=== PATIENT | female | born 1960 | race Caucasian/White ===

== ENCOUNTER 2018-06-07 13:00 | Observation (INO) | payer OTHER ==
[2018-06-07] MEDS ORDERED: Sodium Chloride 0.9% 1,000 ML IV ONE (13:15)
--- NOTE | 2018-06-07 13:19 | EDM.PDOC ---
ED HPI GENERAL MEDICAL PROBLEM - General Chief Complaint: Neurological Problem Stated Complaint: DIZZY AND FELL Time Seen by Provider: 06/07/18 13:00 Source of Information: Reports: Patient, EMS History Limitations: Reports: Intoxication - History of Present Illness INITIAL COMMENTS - FREE TEXT/NARRATIVE: 58 y.o.w.f came to the ED was eating, felt dizzy, passed out for about 4 minutes and had foam in front of her mouth. Her friend prevented the fall. Pt drinks heavily melody a months because of "Marital issues". EMS picked the pat up from the [facility]. On arrival, the patient was lethargic/postictal and not able to to give a HPI. Pt was turned, as a unit, to the right side, no step off was found, pt's neck was tender. Pt felt extremely dizzy, no vertigo, no nystagmus. BP 123/71 RR 10 Pulse ox 94% on RA Temp 36.8 Pulse 60 Onset Date: 06/07/18 Onset Time: 00:05 Duration: Hour(s): Location: Reports: Face Quality: Reports: Ache, Dull, Pressure Severity: Moderate Improves with: Reports: Rest Worsens with: Reports: Movement Context: Reports: Other (was eating, felt dizzy, passed out for about 4 minutes and had foam in front of her mouth. Her friend prevented the fall. ) HEADACHE Pain Score (Numeric/FACES): 6 - Related Data Allergies Allergy/AdvReac Type Severity Reaction Status Date / Time Sulfa (Sulfonamide Allergy Cannot Verified 06/07/18 13:28 Antibiotics) Remember Home Meds: Home Meds Atenolol 25 mg PO BID 06/07/18 [History] Ibuprofen 600 mg PO ASDIRECTED 06/07/18 [History] LORazepam 0.5 mg PO BID 06/07/18 [History] ED ROS GENERAL - Review of Systems Review Of Systems: Unable To Obtain ED EXAM, NEURO - Physical Exam Exam: See Below Exam Limited By: Intoxication General Appearance: Alert, WD/WN, Lethargic, Mild Distress Eye Exam: Bilateral Eye: Normal Inspection Ears: Normal External Exam, Normal Canal Nose: Normal Inspection, Normal Mucosa Throat/Mouth: Normal Inspection, Normal Lips, Normal Voice, Other (poor dentition) Head Exam: Atraumatic, Normocephalic Neck: Tender Lateral, Tender Midline Respiratory/Chest: No Respiratory Distress, Lungs Clear (poor insp effort), Normal Breath Sounds Cardiovascular: Normal Peripheral Pulses, Regular Rate, Rhythm, No Edema, No Gallop GI/Abdominal: Normal Bowel Sounds, Soft, Non-Tender, No Organomegaly, No Distention, No Abnormal Bruit, No Mass, Pelvis Stable (Female) Exam: Deferred Rectal (Female) Exam: Deferred Neurological: Abnormal Gait, Ataxia Back Exam: Normal Inspection, Full Range of Motion Extremities: Normal Inspection, Normal Range of Motion, Non-Tender, No Pedal Edema, Normal Capillary Refill Psychiatric: Normal Affect, Normal Mood Skin Exam: Warm, Dry, Intact, Normal Color Course - Vital Signs Text/Narrative:: 58 y.o.w.f came to the ED was eating, felt dizzy, passed out for about 4 minutes and had foam in front of her mouth. Her friend prevented the fall. Pt drinks heavily melody a months because of "Marital issues". EMS picked the pat up from the [facility]. On arrival, the patient was lethargic/postictal and not able to to give a HPI. Pt was turned, as a unit, to the right side, no step off was found, pt's neck was tender. Pt felt extremely dizzy, no vertigo, no nystagmus. BP 123/71 RR 10 Pulse ox 94% on RA Temp 36.8 Pulse 60 PE: WNWD W F lethargic/postictal with R ant tongue bite and spontaneous urinations Labs: ETOH was 0.03 CMC and BMP were nl except GFR was 57 UDS was pos for Benzos Imaging: CT head: NAD, Neck: Deg changes, Pulm emphysema, Nodule left lower lobe of lung. 1.4 cm mass left parotid gland vs lumph node Impression: ETOH withdrawal Seizure with LOC with tongue bite and spontaneous urinations during the fall. Mass left parotid gland, pulmonary nodule Tx: NS, Thiamin, Folic acid, MVT Reexam: Unsteady gate, unable to ambulate 2.40 pm: Consultation: Dr. Peñaloza, Neurologist, [facility] [place], [place]: Most likely ETOH withdrawal Seizure, pt must not operate any vehicle for the next [address] head strongly recommended, need to have a EEG and a Neuro clinic appointment 4.00 pm Consultation: Dr. Wen, Hospitalist, [place]: Accepted the Pt for admission Plan: Admit to [facility] Last Recorded V/S: Last Vital Signs Temp 36.8 C 06/07/18 16:41 Pulse 67 06/07/18 16:41 Resp 11 L 06/07/18 16:41 BP 109/66 06/07/18 16:41 Pulse Ox 97 06/07/18 16:41 - Orders/Labs/Meds Orders: Active Orders 24 hr Category Date Time Status Assess Neurological Status [RC] ASDIRECTED Care 06/07/18 15:56 Active CIWAA Assessment [RC] Q1H Care 06/07/18 15:56 Active Cardiac Monitoring [RC] 08,16,00 Care 06/07/18 15:59 Active Height and Weight [RC] 06 Care 06/07/18 15:56 Active Intake and Output [RC] 06,14,22 Care 06/07/18 15:59 Active Notify Provider Vital Signs [RC] ASDIRECTED Care 06/07/18 16:00 Active Notify Provider [RC] PRN Care 06/07/18 15:56 Active Oxygen Therapy [RC] PRN Care 06/07/18 15:56 Active Up With Assistance [RC] ASDIRECTED Care 06/07/18 15:56 Active VTE/DVT Education [RC] Per Unit Routine Care 06/07/18 15:56 Active Vital Signs [RC] 04,08,12,16,20,00 Care 06/07/18 15:56 Active Clear Liquid Diet [DIET] Diet 06/07/18 Breakfast Ordered Cervical Spine wo Cont [CT] Stat Exams 06/07/18 13:17 Taken Head wo Cont [CT] Stat Exams 06/07/18 13:17 Taken CBC WITH AUTO DIFF [HEME] AM Lab 06/08/18 05:11 Ordered COMPREHENSIVE METABOLIC PN,CMP [CHEM] AM Lab 06/08/18 05:11 Ordered INR,PT,PROTHROMBIN TIME [COAG] AM Lab 06/08/18 05:11 Ordered MAGNESIUM [CHEM] AM Lab 06/08/18 05:11 Ordered PHOSPHORUS [CHEM] AM Lab 06/08/18 05:11 Ordered PTT,PARTIAL THROMBOPLSTIN TIME [COAG] AM Lab 06/08/18 05:11 Ordered Acetaminophen [Tylenol] Med 06/07/18 15:56 Active 650 mg PO Q4H PRN Folic Acid Med 06/08/18 09:00 Active 1 mg PO DAILY LORazepam [Ativan] Med 06/07/18 16:00 Active See Protocol PO ASDIRECTED Multivitamins [Tab-A-Sudhakar] Med 06/08/18 09:00 Active 1 tab PO DAILY Sodium Chloride 0.9% [Saline Flush] Med 06/07/18 15:56 Active 10 ml FLUSH ASDIRECTED PRN Thiamine [Vitamin B-1] Med 06/08/18 09:00 Active 100 mg PO DAILY Antiembolic Hose [OM.PC] Per Unit Routine Oth 06/07/18 16:00 Ordered Peripheral IV Insertion Adult [OM.PC] Routine Oth 06/07/18 15:56 Ordered Seizure Precautions [OM.PC] Routine Oth 06/07/18 13:18 Ordered Sequential Compression Device [OM.PC] Per Unit Routine Oth 06/07/18 16:00 Ordered Medication Orders Acetaminophen (Tylenol) 650 mg PO Q4H PRN PRN Reason: Pain (Mild 1-3)/fever Last Admin: 06/07/18 17:18 Dose: 650 mg Atenolol (Tenormin) 25 mg PO BID [facility] Folic Acid (Folic Acid) 1 mg PO DAILY [facility] Hydroxyzine HCl (Atarax) 25 mg PO Q4H PRN PRN Reason: Anxiety Lorazepam (Ativan) 0 mg PO ASDIRECTED [facility]; Protocol Multivitamins/Minerals/Vitamin C (Tab-A-Sudhakar) 1 tab PO DAILY [facility] Nicotine Polacrilex (Commit) 2 mg CHEW Q1H PRN PRN Reason: tobacco abuse Sodium Chloride (Saline Flush) 10 ml FLUSH ASDIRECTED PRN PRN Reason: Keep Vein Open Thiamine HCl (Vitamin B-1) 100 mg PO DAILY [facility] Labs: Laboratory Tests 06/07/18 06/07/18 06/07/18 Range/Units 13:30 13:30 13:30 WBC 6.7 (4.5-12.0) X10-3/uL RBC 3.78 (3.23-5.20) x10(6)uL Hgb 12.3 (11.5-15.5) g/dL Hct 35.7 (30.0-51.3) % MCV 94.7 (80-96) fL MCH 32.6 (27.7-33.6) pg MCHC 34.4 (32.2-35.4) g/dL RDW 12.4 (11.5-15.5) % Plt Count 164 (125-369) X10(3)uL MPV 8.2 (7.4-10.4) fL Neut % (Auto) 76.1 (46-82) % Lymph % (Auto) 17.7 (13-37) % [place] % (Auto) 5.1 (4-12) % Eos % (Auto) 1 (1.0-5.0) % Baso % (Auto) 0 (0-2) % Neut # (Auto) 5.1 (1.6-8.3) # Lymph # (Auto) 1.2 (0.6-5.0) # Victoria # (Auto) 0.3 (0.0-1.3) # Eos # (Auto) 0.1 (0.0-0.8) # Baso # (Auto) 0.0 (0.0-0.2) # Sodium 138 (135-145) mmol/L Potassium 3.9 (3.5-5.3) mmol/L Chloride 104 (100-110) mmol/L Carbon Dioxide 22 (21-32) mmol/L BUN 17 (7-18) mg/dL Creatinine 1.0 (0.55-1.02) mg/dL Est Cr Clr Drug Dosing TNP Estimated GFR (MDRD) 57 L (>60) BUN/Creatinine Ratio 17.0 (9-20) Glucose 117 H (80-116) mg/dL Calcium 9.0 (8.6-10.2) mg/dL Urine Color (YELLOW) Urine Appearance (CLEAR) Urine pH (5.0-6.5) Ur Specific [place] (1.010-1.025) Urine Protein (NEGATIVE) mg/dL Urine Glucose (UA) (NEGATIVE) mg/dL Urine Ketones (NEGATIVE) mg/dL Urine Occult Blood (NEGATIVE) Urine Nitrite (NEGATIVE) Urine Bilirubin (NEGATIVE) Urine Urobilinogen (NEGATIVE) mg/dL Ur Leukocyte Esterase (NEGATIVE) Urine RBC (0) Urine WBC (0) Ur Squamous Epith Cells (NS,R,O) Amorphous Sediment Urine Bacteria (NS) Urine Opiates Screen (NEGATIVE) Ur Oxycodone Screen (NEGATIVE) Ur Propoxyphene Screen (NEGATIVE) Ur Barbituates Screen (NEGATIVE) Ur Tricyclics Screen (NEGATIVE) Ur Phencyclidine Scrn (NEGATIVE) Ur Amphetamine Screen (NEGATIVE) Urine MDMA Screen (NEGATIVE) U Benzodiazepines Scrn (NEGATIVE) U Cocaine Metab Screen (NEGATIVE) U Marijuana (THC) Screen (NEGATIVE) Ethyl Alcohol < 0.03 (<0.03) % 06/07/18 06/07/18 Range/Units 14:56 14:56 WBC (4.5-12.0) X10-3/uL RBC (3.23-5.20) x10(6)uL Hgb (11.5-15.5) g/dL Hct (30.0-51.3) % MCV (80-96) fL MCH (27.7-33.6) pg MCHC (32.2-35.4) g/dL RDW (11.5-15.5) % Plt Count (125-369) X10(3)uL MPV (7.4-10.4) fL Neut % (Auto) (46-82) % Lymph % (Auto) (13-37) % [place] % (Auto) (4-12) % Eos % (Auto) (1.0-5.0) % Baso % (Auto) (0-2) % Neut # (Auto) (1.6-8.3) # Lymph # (Auto) (0.6-5.0) # Victoria # (Auto) (0.0-1.3) # Eos # (Auto) (0.0-0.8) # Baso # (Auto) (0.0-0.2) # Sodium (135-145) mmol/L Potassium (3.5-5.3) mmol/L Chloride (100-110) mmol/L Carbon Dioxide (21-32) mmol/L BUN (7-18) mg/dL Creatinine (0.55-1.02) mg/dL Est Cr Clr Drug Dosing Estimated GFR (MDRD) (>60) BUN/Creatinine Ratio (9-20) Glucose (80-116) mg/dL Calcium (8.6-10.2) mg/dL Urine Color Yellow (YELLOW) Urine Appearance Slightly cloudy (CLEAR) Urine pH 6.0 (5.0-6.5) Ur Specific [place] 1.020 (1.010-1.025) Urine Protein Trace (NEGATIVE) mg/dL Urine Glucose (UA) Normal (NEGATIVE) mg/dL Urine Ketones Negative (NEGATIVE) mg/dL Urine Occult Blood Negative (NEGATIVE) Urine Nitrite Negative (NEGATIVE) Urine Bilirubin Small H (NEGATIVE) Urine Urobilinogen 1 H (NEGATIVE) mg/dL Ur Leukocyte Esterase Negative (NEGATIVE) Urine RBC 0-5 (0) Urine WBC 0-5 (0) Ur Squamous Epith Cells Moderate H (NS,R,O) Amorphous Sediment Few Urine Bacteria Few H (NS) Urine Opiates Screen Negative (NEGATIVE) Ur Oxycodone Screen Negative (NEGATIVE) Ur Propoxyphene Screen Negative (NEGATIVE) Ur Barbituates Screen Negative (NEGATIVE) Ur Tricyclics Screen Negative (NEGATIVE) Ur Phencyclidine Scrn Negative (NEGATIVE) Ur Amphetamine Screen Negative (NEGATIVE) Urine MDMA Screen Negative (NEGATIVE) U Benzodiazepines Scrn Positive H (NEGATIVE) U Cocaine Metab Screen Negative (NEGATIVE) U Marijuana (THC) Screen Negative (NEGATIVE) Ethyl Alcohol (<0.03) % Meds: Medications Generic Name Dose Route Start Last Admin Trade Name Freq PRN Reason Stop Dose Admin Acetaminophen 650 mg 06/07/18 15:56 06/07/18 17:18 Tylenol PO 650 mg Q4H PRN Administration Pain (Mild 1-3)/fever Atenolol 25 mg 06/07/18 21:00 Tenormin PO BID [facility] Folic Acid 1 mg 06/08/18 09:00 Folic Acid PO DAILY [facility] Hydroxyzine HCl 25 mg 06/07/18 16:50 Atarax PO Q4H PRN Anxiety Lorazepam 0 mg 06/07/18 16:00 Ativan PO ASDIRECTED [facility] Protocol Multivitamins/Minerals/Vitamin C 1 tab 06/08/18 09:00 Tab-A-Sudhakar PO DAILY [facility] Nicotine Polacrilex 2 mg 06/07/18 16:47 Commit CHEW Q1H PRN tobacco abuse Sodium Chloride 10 ml 06/07/18 15:56 Saline Flush FLUSH ASDIRECTED PRN Keep Vein Open Thiamine HCl 100 mg 06/08/18 09:00 Vitamin B-1 PO DAILY [facility] Discontinued Medications Generic Name Dose Route Start Last Admin Trade Name Freq PRN Reason Stop Dose Admin Folic Acid 1 mg 06/07/18 15:02 06/07/18 15:14 Folic Acid PO 06/07/18 15:03 1 mg ONETIME ONE Administration Sodium Chloride 1,000 mls @ 999 mls/hr 06/07/18 13:15 06/07/18 13:40 Normal Saline IV 06/07/18 14:15 999 mls/hr .BOLUS ONE Administration Multivitamins/Minerals/Vitamin C 1 tab 06/07/18 15:02 06/07/18 15:14 Tab-A-Sudhakar PO 06/07/18 15:03 1 tab ONETIME STA Administration Thiamine HCl 100 mg 06/07/18 15:02 06/07/18 15:14 Vitamin B-1 PO 06/07/18 15:03 100 mg ONETIME ONE Administration Departure - Departure Time of Disposition: 16:47 Disposition: Admitted As Inpatient 64 Clinical Impression: Seizure, H/O ETOH abuse - Discharge Information - My Orders Last 24 Hours: My Active Orders 06/07/18 13:17 Cervical Spine wo Cont [CT] Stat Head wo Cont [CT] Stat 06/07/18 13:18 Seizure Precautions [OM.PC] Routine - Assessment/Plan Last 24 Hours: My Active Orders 06/07/18 13:17 Cervical Spine wo Cont [CT] Stat Head wo Cont [CT] Stat 06/07/18 13:18 Seizure Precautions [OM.PC] Routine
[2018-06-07] MEDS ORDERED: Thiamine 100 MG Tab PO ONE (15:02)
[2018-06-07] MEDS ORDERED: Multivitamin Tab PO STA (15:02)
[2018-06-07] MEDS ORDERED: Folic Acid 1 MG Tab PO ONE (15:02)
[2018-06-07] MEDS ORDERED: Sodium Chloride 0.9% 10 ML Syringe FLUSH PRN (15:56)
[2018-06-07] MEDS ORDERED: LORazepam 1 MG Tab PO SCH (16:00)
--- NOTE | 2018-06-07 16:40 | PCM.HP ---
H&P History of Present Illness - General Date of Service: 06/07/18 Admit Problem/Dx: Admission Diagnosis/Problem Admission Diagnosis/Problem Alcohol withdrawal seizure Source of Information: Patient, Family, Provider History Limitations: Reports: Other (unable to recall) - History of Present Illness Initial Comments - Free Text/Narative: Patient is a 58-year-old female who binge drinks 3-4 times per month 6-12 beers at a time who was out drinking at the casino in [place] last night and had her last drink about 12:30 AM. She was there with a friend and they got up to go have breakfast this morning around 11. At around 11:30 AM she was feeling very dizzy as she was sitting in the [place] at the restaurant there. She felt like her vision was somewhat blurred and couldn't really see straight. The next thing she knew she woke up on the floor. Her friend reported that she had become very pale, her eyes rolled back in her head, and she started to foam at the mouth. The friend screamed for help and a catering staff member helped her lower the patient to the floor. The friend thinks it was about 4 minutes before she became responsive. No mention of stiffness or rhythmic movements but the patient was incontinent of urine. When she woke she was very confused and disoriented. EMS brought her to the emergency department where she was evaluated. Head CT was negative, vital signs were stable, patient had a tongue laceration, and the ER physician consult with neurology from [place]. He recommended no driving for the next 3 months, EEG and follow-up with neurology on discharge. They did not recommend any medication as it was likely induced by the heavy drinking. The initial plan had been to discharge the patient home from the ER once her post ictal lethargy had resolved but she continued to be quite off balance and weak and so I was asked to admit the patient for observation. The patient at this time has no pain. She is alert and oriented 3. She feels weak and dizzy when she sits up. No chest pain, no shortness of breath, no nausea, no vomiting. She bit the side of her tongue on the right. She normally takes lorazepam 0.5 mg twice a day for anxiety, has never been on anything else for anxiety. She skipped her dose last night and hasn't had any yet today. Past medical history: No prior history of seizures or alcohol treatment. Patient only drinks about once a week and has never had tremors or shakes with her alcohol use. Hypertension Sjogren's disease Anxiety which began when her son committed suicide. She currently takes lorazepam 0.5 mg twice a day and has since his . Social history: The patient has 4 children, one of which is apparent of fraternal twins. Her one son committed suicide. She drinks about once a week but when she drinks she drinks very heavily between 6-12 beers at a sitting. She smokes a half pack of cigarettes per day. She is and she and her live in [facility]. 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 - Related Data Allergies/Adverse Reactions: Allergies Allergy/AdvReac Type Severity Reaction Status Date / Time Sulfa (Sulfonamide Allergy Cannot Verified 06/07/18 13:28 Antibiotics) Remember Home Medications: Home Meds Atenolol 25 mg PO BID 06/07/18 [History] Ibuprofen 600 mg PO ASDIRECTED 06/07/18 [History] LORazepam 0.5 mg PO BID 06/07/18 [History] Past Medical History Cardiovascular History: Reports: Hypertension Psychiatric History: Reports: Anxiety Social & Family History - Tobacco Use Smoking Status *Q: Current Every Day Smoker Years of Tobacco use: 35 Packs/Tins Daily: 1 - Caffeine Use Caffeine Use: Reports: None - Recreational Drug Use Recreational Drug Use: No H&P Review of Systems - Review of Systems: Review Of Systems: ROS reveals no pertinent complaints other than HPI. Exam - Exam Exam: See Below - Vital Signs Vital Signs: Last Vital Signs Temp 36.6 C 06/07/18 16:00 Pulse 64 06/07/18 14:15 Resp 12 06/07/18 16:00 BP 115/55 L 06/07/18 16:00 Pulse Ox 100 06/07/18 16:00 Weight: 63.503 kg - Exam General: Alert, Oriented, Cooperative HEENT: PERRLA, Conjunctiva Clear, EACs Clear, EOMI, Mucosa Moist & Reservoir, Posterior Pharynx Clear, Other (Abrasion to the right side of the tongue.) Neck: Supple (No tenderness) Lungs: Clear to Auscultation, Normal Respiratory Effort Cardiovascular: Regular Rate, Regular Rhythm, Normal S1, Normal S2 GI/Abdominal Exam: Normal Bowel Sounds, Soft, Non-Tender, No Distention Extremities: Normal Inspection, Normal Range of Motion, No Pedal Edema Neurological: Strength Equal Bilateral (on lower extremity exam in bed as patient became dizzy with sitting up.), Babinski Absent Neuro Extensive - Mental Status: Alert, Oriented x3, Memory Intact Psychiatric: Alert, Normal Affect, Normal Mood - Patient Data Lab Results Last 24 hrs: Laboratory Results - last 24 hr 06/07/18 06/07/18 06/07/18 Range/Units 13:30 13:30 13:30 WBC 6.7 (4.5-12.0) X10-3/uL RBC 3.78 (3.23-5.20) x10(6)uL Hgb 12.3 (11.5-15.5) g/dL Hct 35.7 (30.0-51.3) % MCV 94.7 (80-96) fL MCH 32.6 (27.7-33.6) pg MCHC 34.4 (32.2-35.4) g/dL RDW 12.4 (11.5-15.5) % Plt Count 164 (125-369) X10(3)uL MPV 8.2 (7.4-10.4) fL Neut % (Auto) 76.1 (46-82) % Lymph % (Auto) 17.7 (13-37) % Victoria % (Auto) 5.1 (4-12) % Eos % (Auto) 1 (1.0-5.0) % Baso % (Auto) 0 (0-2) % Neut # (Auto) 5.1 (1.6-8.3) # Lymph # (Auto) 1.2 (0.6-5.0) # Victoria # (Auto) 0.3 (0.0-1.3) # Eos # (Auto) 0.1 (0.0-0.8) # Baso # (Auto) 0.0 (0.0-0.2) # Sodium 138 (135-145) mmol/L Potassium 3.9 (3.5-5.3) mmol/L Chloride 104 (100-110) mmol/L Carbon Dioxide 22 (21-32) mmol/L BUN 17 (7-18) mg/dL Creatinine 1.0 (0.55-1.02) mg/dL Est Cr Clr Drug Dosing TNP Estimated GFR (MDRD) 57 L (>60) BUN/Creatinine Ratio 17.0 (9-20) Glucose 117 H (80-116) mg/dL Calcium 9.0 (8.6-10.2) mg/dL Urine Color (YELLOW) Urine Appearance (CLEAR) Urine pH (5.0-6.5) Ur Specific [place] (1.010-1.025) Urine Protein (NEGATIVE) mg/dL Urine Glucose (UA) (NEGATIVE) mg/dL Urine Ketones (NEGATIVE) mg/dL Urine Occult Blood (NEGATIVE) Urine Nitrite (NEGATIVE) Urine Bilirubin (NEGATIVE) Urine Urobilinogen (NEGATIVE) mg/dL Ur Leukocyte Esterase (NEGATIVE) Urine RBC (0) Urine WBC (0) Ur Squamous Epith Cells (NS,R,O) Amorphous Sediment Urine Bacteria (NS) Urine Opiates Screen (NEGATIVE) Ur Oxycodone Screen (NEGATIVE) Ur Propoxyphene Screen (NEGATIVE) Ur Barbituates Screen (NEGATIVE) Ur Tricyclics Screen (NEGATIVE) Ur Phencyclidine Scrn (NEGATIVE) Ur Amphetamine Screen (NEGATIVE) Urine MDMA Screen (NEGATIVE) U Benzodiazepines Scrn (NEGATIVE) U Cocaine Metab Screen (NEGATIVE) U Marijuana (THC) Screen (NEGATIVE) Ethyl Alcohol < 0.03 (<0.03) % 06/07/18 06/07/18 Range/Units 14:56 14:56 WBC (4.5-12.0) X10-3/uL RBC (3.23-5.20) x10(6)uL Hgb (11.5-15.5) g/dL Hct (30.0-51.3) % MCV (80-96) fL MCH (27.7-33.6) pg MCHC (32.2-35.4) g/dL RDW (11.5-15.5) % Plt Count (125-369) X10(3)uL MPV (7.4-10.4) fL Neut % (Auto) (46-82) % Lymph % (Auto) (13-37) % [place] % (Auto) (4-12) % Eos % (Auto) (1.0-5.0) % Baso % (Auto) (0-2) % Neut # (Auto) (1.6-8.3) # Lymph # (Auto) (0.6-5.0) # Victoria # (Auto) (0.0-1.3) # Eos # (Auto) (0.0-0.8) # Baso # (Auto) (0.0-0.2) # Sodium (135-145) mmol/L Potassium (3.5-5.3) mmol/L Chloride (100-110) mmol/L Carbon Dioxide (21-32) mmol/L BUN (7-18) mg/dL Creatinine (0.55-1.02) mg/dL Est Cr Clr Drug Dosing Estimated GFR (MDRD) (>60) BUN/Creatinine Ratio (9-20) Glucose (80-116) mg/dL Calcium (8.6-10.2) mg/dL Urine Color Yellow (YELLOW) Urine Appearance Slightly cloudy (CLEAR) Urine pH 6.0 (5.0-6.5) Ur Specific [place] 1.020 (1.010-1.025) Urine Protein Trace (NEGATIVE) mg/dL Urine Glucose (UA) Normal (NEGATIVE) mg/dL Urine Ketones Negative (NEGATIVE) mg/dL Urine Occult Blood Negative (NEGATIVE) Urine Nitrite Negative (NEGATIVE) Urine Bilirubin Small H (NEGATIVE) Urine Urobilinogen 1 H (NEGATIVE) mg/dL Ur Leukocyte Esterase Negative (NEGATIVE) Urine RBC 0-5 (0) Urine WBC 0-5 (0) Ur Squamous Epith Cells Moderate H (NS,R,O) Amorphous Sediment Few Urine Bacteria Few H (NS) Urine Opiates Screen Negative (NEGATIVE) Ur Oxycodone Screen Negative (NEGATIVE) Ur Propoxyphene Screen Negative (NEGATIVE) Ur Barbituates Screen Negative (NEGATIVE) Ur Tricyclics Screen Negative (NEGATIVE) Ur Phencyclidine Scrn Negative (NEGATIVE) Ur Amphetamine Screen Negative (NEGATIVE) Urine MDMA Screen Negative (NEGATIVE) U Benzodiazepines Scrn Positive H (NEGATIVE) U Cocaine Metab Screen Negative (NEGATIVE) U Marijuana (THC) Screen Negative (NEGATIVE) Ethyl Alcohol (<0.03) % Result Diagrams: 06/07/18 13:30 06/07/18 13:30 Imaging Impressions Last 24 hrs: head CT reportedly negative. - Problem List (1) Seizure concurrent with and due to anxiolytic withdrawal SNOMED Code(s): 411672131 ICD Code: F13.239 - SEDATV/HYP/ANXIOLYTC DEPENDENCE W WITHDRAWAL, UNSP; F13.288 - SEDATIVE, HYPNOTIC OR ANXIOLYTIC DEPENDENCE W OTH DISORDER; R56.9 - UNSPECIFIED CONVULSIONS Status: Acute Current Visit: Yes Problem Details: I suspect the combination of heavy alcohol use combined with the withdrawal from the lorazepam precipitated the seizure. We'll monitor the patient overnight. An MRI will be scheduled for Saturday at 8:30 AM to rule out other intracranial abnormalities. Recheck electrolytes, labs in a.m. Seizure precautions. Cardiac monitoring. (2) HTN (hypertension) SNOMED Code(s): 26141106 ICD Code: I10 - ESSENTIAL (PRIMARY) HYPERTENSION Status: Acute Current Visit: Yes Problem Details: Monitor. Continue atenolol. (3) Tobacco abuse SNOMED Code(s): 058268437 ICD Code: Z72.0 - TOBACCO USE Status: Acute Current Visit: Yes Problem Details: Nicotine replacement. (4) DVT prophylaxis SNOMED Code(s): 460448958, 112098873 ICD Code: [id number] - Status: Acute Current Visit: Yes Problem Details: SCDs, support hose, early ambulation. Problem List Initiated/Reviewed/Updated: Yes Orders Last 24hrs: Active Orders 24 hr Category Date Time Status Admission Status [Patient Status] [ADT] Routine ADT 06/07/18 16:03 Active Assess Neurological Status [RC] ASDIRECTED Care 06/07/18 15:56 Active CIWAA Assessment [RC] Q1H Care 06/07/18 15:56 Active Cardiac Monitoring [RC] CONTINUOUS Care 06/07/18 15:59 Active Height and Weight [RC] DAILY Care 06/07/18 15:56 Active Intake and Output [RC] QSHIFT Care 06/07/18 15:59 Active Notify Provider Vital Signs [RC] ASDIRECTED Care 06/07/18 16:00 Active Notify Provider [RC] PRN Care 06/07/18 15:56 Active Oxygen Therapy [RC] PRN Care 06/07/18 15:56 Active Up With Assistance [RC] ASDIRECTED Care 06/07/18 15:56 Active VTE/DVT Education [RC] Per Unit Routine Care 06/07/18 15:56 Active Vital Signs [RC] Q4H Care 06/07/18 15:56 Active Clear Liquid Diet [DIET] Diet 06/07/18 Breakfast Ordered Cervical Spine wo Cont [CT] Stat Exams 06/07/18 13:17 Taken Head wo Cont [CT] Stat Exams 06/07/18 13:17 Taken CBC WITH AUTO DIFF [HEME] AM Lab 06/08/18 05:11 Ordered COMPREHENSIVE METABOLIC PN,CMP [CHEM] AM Lab 06/08/18 05:11 Ordered INR,PT,PROTHROMBIN TIME [COAG] AM Lab 06/08/18 05:11 Ordered MAGNESIUM [CHEM] AM Lab 06/08/18 05:11 Ordered PHOSPHORUS [CHEM] AM Lab 06/08/18 05:11 Ordered PTT,PARTIAL THROMBOPLSTIN TIME [COAG] AM Lab 06/08/18 05:11 Ordered Acetaminophen [Tylenol] Med 06/07/18 15:56 Active 650 mg PO Q4H PRN Folic Acid Med 06/08/18 09:00 Active 1 mg PO DAILY LORazepam [Ativan] Med 06/07/18 16:00 Active See Protocol PO ASDIRECTED Multivitamins [Tab-A-Sudhakar] Med 06/08/18 09:00 Active 1 tab PO DAILY Sodium Chloride 0.9% [Saline Flush] Med 06/07/18 15:56 Active 10 ml FLUSH ASDIRECTED PRN Thiamine [Vitamin B-1] Med 06/08/18 09:00 Active 100 mg PO DAILY Antiembolic Hose [OM.PC] Per Unit Routine Oth 06/07/18 16:00 Ordered Peripheral IV Insertion Adult [OM.PC] Routine Oth 06/07/18 15:56 Ordered Seizure Precautions [OM.PC] Routine Oth 06/07/18 13:18 Ordered Sequential Compression Device [OM.PC] Per Unit Routine Oth 06/07/18 16:00 Ordered Medication Orders Acetaminophen (Tylenol) 650 mg PO Q4H PRN PRN Reason: Pain (Mild 1-3)/fever Folic Acid (Folic Acid) 1 mg PO DAILY LEONOR Lorazepam (Ativan) 0 mg PO ASDIRECTED LEONOR; Protocol Multivitamins/Minerals/Vitamin C (Tab-A-Sudhakar) 1 tab PO DAILY LEONOR Sodium Chloride (Saline Flush) 10 ml FLUSH ASDIRECTED PRN PRN Reason: Keep Vein Open Thiamine HCl (Vitamin B-1) 100 mg PO DAILY LEONOR Assessment/Plan Comment:: CODE STATUS reviewed with the patient and her on admission and the patient is a full code. She would want everything done to try to resuscitate her if she were to stop breathing or her heart were to stop beating. However she would not want long-term intubation or feeding tubes and recommended advanced healthcare directive planning to address these issues.
[2018-06-07] MEDS ORDERED: Nicotine Polacrilex 2 MG Loz Box CHEW PRN (16:47)
[2018-06-07] MEDS: Acetaminophen 325 MG Tab PO PRN (17:18)
[2018-06-07] MEDS ORDERED: Ibuprofen 400 MG Tab PO PRN (17:46)
[2018-06-07] MEDS ORDERED: Atenolol 25 MG Tab PO SCH (21:00)
[2018-06-07] MEDS: hydrOXYzine HCl 25 MG Tab PO PRN (21:09)
[2018-06-08] MEDS: Acetaminophen 325 MG Tab PO PRN (06:03)
[2018-06-08] MEDS ORDERED: Multivitamin Tab PO SCH (09:00)
[2018-06-08] MEDS ORDERED: Thiamine 100 MG Tab PO SCH (09:00)
[2018-06-08] MEDS ORDERED: Folic Acid 1 MG Tab PO SCH (09:00)
[2018-06-08] MEDS: hydrOXYzine HCl 25 MG Tab PO PRN (09:39)
--- NOTE | 2018-06-08 11:33 | PCM.DCSUM1 ---
Discharge Summary - Hospital Course Free Text/Narrative:: Date of admission: 06/07/18 Date of discharge: 06/08/18 Admission diagnosis: Possible seizure related to excessive alcohol consumption Discharge diagnosis: Same Consults: Neurology by phone from the emergency department. They recommended not starting an antiseizure medication at this time. Patient will have an MRI done the day after discharge and neurology appointment and EEG need to be set up from the patient's primary care provider's office. The patient should not drive until she's been cleared by neurology. Procedures: Head CT was negative. CT of the cervical spine was negative, but incidentally was found mild pulmonary emphysema with a 4-5 mm left upper lobe pulmonary nodule, and a 1.4 cm small mass involving the left parotid gland versus intraparotid lymph node. The patient and her were given copies of these imaging studies with the pertinent findings highlighted and I recommended following up tomorrow in our urgent care to get further testing set up as the patient does not currently have insurance and does not want to go back to her primary care provider for this. They can also help her arrange EEG and neurology follow-up. History of present illness: Patient is a 58-year-old female who binge drinks 3-4 times per month 6-12 beers at a time who was out drinking at the casino in [place] the night prior to admission and had her last drink about 12:30 AM. She was there with a friend and they got up to go have breakfast on the AM of admission around 11. At around 11:30 AM she was feeling very dizzy as she was sitting in the [place] at the restaurant there. She felt like her vision was somewhat blurred and couldn' t really see straight. The next thing she knew she woke up on the floor. Her friend reported that she had become very pale, her eyes rolled back in her head , and she started to foam at the mouth. The friend screamed for help and a waitstaff captain helped her lower the patient to the floor. The friend thinks it was about 4 minutes before she became responsive. No mention of stiffness or rhythmic movements but the patient was incontinent of urine. When she woke she was very confused and disoriented. EMS brought her to the emergency department where she was evaluated. Head CT was negative, vital signs were stable, patient had a tongue laceration, and the ER physician consulted by phone with neurology from [facility]. He recommended no driving for the next 3 months, EEG and follow-up with neurology on discharge. They did not recommend any medication as it was likely induced by the heavy drinking. The initial plan had been to discharge the patient home from the ER once her post ictal lethargy had resolved but she continued to be quite off balance and weak and so I was asked to admit the patient for observation. Hospital Course: Patient did well throughout hospitalization. She was found to be bradycardic and hypotensive and her atenolol was stopped. For anxiety, hydroxyzine was tried and worked well. 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 On the day of discharge, the patient was able to ambulate in the [place] without difficulty. Initially she still felt very achy and anxious about all the cost associated with this visit as she doesn't have insurance. No chest pain, no shortness of breath, no nausea or vomiting, still feels a little shaky. 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 Patient had no further symptoms overnight. An MRI will be scheduled for Saturday at 8:30 AM to rule out other intracranial abnormalities. Follow up with PCP later this week and plan to schedule neurology outpatient visit with EEG. (2) HTN (hypertension) SNOMED Code(s): 36129798 ICD Code: I10 - ESSENTIAL (PRIMARY) HYPERTENSION Status: Acute Current Visit: Yes Problem Details: Has been hypotensive and bradycardic here, as low as 40s overnight. Recommend holding this until follow up and consider alternative blood pressure medication. (3) Tobacco abuse SNOMED Code(s): 830971117 ICD Code: Z72.0 - TOBACCO USE Status: Acute Current Visit: Yes Problem Details: Nicotine replacement. (4) Anxiety SNOMED Code(s): 73440312 ICD Code: F41.9 - ANXIETY DISORDER, UNSPECIFIED Status: Acute Current Visit: Yes Problem Details: Patient did well with PO hydralazine. Recommended seeing PCP to do long-acting anti anxiety med, no more lorazepam or alcohol, and consider counseling. (5) DVT prophylaxis SNOMED Code(s): 107529284, 968648699 ICD Code: [id number] - Status: Acute Current Visit: Yes Problem Details: SCDs, support hose, early ambulation. - Patient Instructions Diet: Heart Healthy Diet Activity: As Tolerated Driving: Do Not Drive (No driving until cleared by neurology) Other/Special Instructions: You were admitted to the hospital for an episode of loss of consciousness. We think you may have had a seizure, which could have been triggered by alcohol and your lorazepam, missing a dose. You had no symptoms of withdrawal in the hospital, and no further seizures. DO NOT drink alcoholic beverages or take lorazepam again. You may use hydroxyzine instead for anxiety, and I would suggest a longer-acting medication like prozac or zoloft for anxiety as well. Please see your regular doctor this week to discuss , and to set up an appointment with neurology. You will need to have an EEG done as an outpatient to look for abnormal brain activity that might trigger another seizure. You cannot drive until cleared by neurology. You have an MRI scheduled for 8:30 am on Saturday06/09/18 here at [facility]. Your heart rate and blood pressure were quite low in the hospital, and you should stop your atenolol and follow up next week with your regular doctor. - Discharge Plan Prescriptions/Med Rec: hydrOXYzine HCl [hydrOXYzine] 25 mg PO Q4H PRN #30 tablet PRN Reason: Anxiety Nicotine Polacrilex [Commit] 2 mg CHEW Q1H PRN #20 adina PRN Reason: tobacco abuse Home Medications: Home Meds Nicotine Polacrilex [Commit] 2 mg CHEW Q1H PRN #20 adina 06/08/18 [Rx] hydrOXYzine HCl [hydrOXYzine] 25 mg PO Q4H PRN #30 tablet 06/08/18 [Rx] Patient Handouts: Seizure, Adult, Venous Thromboembolism Prevention Forms: ED Department Discharge Referrals: PCP,None [Ordering Only Provider] - - Discharge Summary/Plan Comment DC Time >30 min.: Yes - Patient Data Vitals - Most Recent: Last Vital Signs Temp 36.7 C 06/08/18 07:16 Pulse 57 L 06/08/18 07:16 Resp 15 06/08/18 07:16 BP 91/57 L 06/08/18 07:16 Pulse Ox 99 06/08/18 07:16 Orthostatic Blood Pressure [ 119/80 Sitting] Weight - Most Recent: 62.278 kg I&O - Last 24 hours: Intake & Output 06/07/18 06/08/18 06/08/18 22:59 06:59 14:59 Intake Total 425 100 300 Output Total 650 450 600 Balance -225 -350 -300 Lab Results - Last 24 hrs: Laboratory Results - last 24 hr 06/07/18 06/07/18 06/07/18 Range/Units 13:30 13:30 13:30 WBC 6.7 (4.5-12.0) X10-3/uL RBC 3.78 (3.23-5.20) x10(6)uL Hgb 12.3 (11.5-15.5) g/dL Hct 35.7 (30.0-51.3) % MCV 94.7 (80-96) fL MCH 32.6 (27.7-33.6) pg MCHC 34.4 (32.2-35.4) g/dL RDW 12.4 (11.5-15.5) % Plt Count 164 (125-369) X10(3)uL MPV 8.2 (7.4-10.4) fL Neut % (Auto) 76.1 (46-82) % Lymph % (Auto) 17.7 (13-37) % [place] % (Auto) 5.1 (4-12) % Eos % (Auto) 1 (1.0-5.0) % Baso % (Auto) 0 (0-2) % Neut # (Auto) 5.1 (1.6-8.3) # Lymph # (Auto) 1.2 (0.6-5.0) # [place] # (Auto) 0.3 (0.0-1.3) # Eos # (Auto) 0.1 (0.0-0.8) # Baso # (Auto) 0.0 (0.0-0.2) # PT (8.7-11.1) INR (0.89-1.13) APTT (24.4-33.2) SECONDS Sodium 138 (135-145) mmol/L Potassium 3.9 (3.5-5.3) mmol/L Chloride 104 (100-110) mmol/L Carbon Dioxide 22 (21-32) mmol/L BUN 17 (7-18) mg/dL Creatinine 1.0 (0.55-1.02) mg/dL Est Cr Clr Drug Dosing TNP Estimated GFR (MDRD) 57 L (>60) BUN/Creatinine Ratio 17.0 (9-20) Glucose 117 H (80-116) mg/dL Calcium 9.0 (8.6-10.2) mg/dL Phosphorus (2.6-4.6) mg/dL Magnesium (1.8-2.5) mg/dL Total Bilirubin (0.1-1.3) mg/dL AST (5-25) IU/L ALT (12-36) U/L Alkaline Phosphatase (56-112) IU/L Total Protein (6.0-8.0) g/dL Albumin (3.2-4.6) g/dL Globulin g/dL Albumin/Globulin Ratio Urine Color (YELLOW) Urine Appearance (CLEAR) Urine pH (5.0-6.5) Ur Specific [place] (1.010-1.025) Urine Protein (NEGATIVE) mg/dL Urine Glucose (UA) (NEGATIVE) mg/dL Urine Ketones (NEGATIVE) mg/dL Urine Occult Blood (NEGATIVE) Urine Nitrite (NEGATIVE) Urine Bilirubin (NEGATIVE) Urine Urobilinogen (NEGATIVE) mg/dL Ur Leukocyte Esterase (NEGATIVE) Urine RBC (0) Urine WBC (0) Ur Squamous Epith Cells (NS,R,O) Amorphous Sediment Urine Bacteria (NS) Urine Opiates Screen (NEGATIVE) Ur Oxycodone Screen (NEGATIVE) Ur Propoxyphene Screen (NEGATIVE) Ur Barbituates Screen (NEGATIVE) Ur Tricyclics Screen (NEGATIVE) Ur Phencyclidine Scrn (NEGATIVE) Ur Amphetamine Screen (NEGATIVE) Urine MDMA Screen (NEGATIVE) U Benzodiazepines Scrn (NEGATIVE) U Cocaine Metab Screen (NEGATIVE) U Marijuana (THC) Screen (NEGATIVE) Ethyl Alcohol < 0.03 (<0.03) % 06/07/18 06/07/18 06/08/18 Range/Units 14:56 14:56 06:12 WBC 4.8 (4.5-12.0) X10-3/uL RBC 3.40 (3.23-5.20) x10(6)uL Hgb 11.2 L (11.5-15.5) g/dL Hct 32.3 (30.0-51.3) % MCV 95.0 (80-96) fL MCH 32.8 (27.7-33.6) pg MCHC 34.5 (32.2-35.4) g/dL RDW 12.7 (11.5-15.5) % Plt Count 148 (125-369) X10(3)uL MPV 8.4 (7.4-10.4) fL Neut % (Auto) 52.5 (46-82) % Lymph % (Auto) 36.2 (13-37) % [place] % (Auto) 9.3 (4-12) % Eos % (Auto) 2 (1.0-5.0) % Baso % (Auto) 0 (0-2) % Neut # (Auto) 2.6 (1.6-8.3) # Lymph # (Auto) 1.7 (0.6-5.0) # [place] # (Auto) 0.4 (0.0-1.3) # Eos # (Auto) 0.1 (0.0-0.8) # Baso # (Auto) 0.0 (0.0-0.2) # PT (8.7-11.1) INR (0.89-1.13) APTT (24.4-33.2) SECONDS Sodium (135-145) mmol/L Potassium (3.5-5.3) mmol/L Chloride (100-110) mmol/L Carbon Dioxide (21-32) mmol/L BUN (7-18) mg/dL Creatinine (0.55-1.02) mg/dL Est Cr Clr Drug Dosing Estimated GFR (MDRD) (>60) BUN/Creatinine Ratio (9-20) Glucose (80-116) mg/dL Calcium (8.6-10.2) mg/dL Phosphorus (2.6-4.6) mg/dL Magnesium (1.8-2.5) mg/dL Total Bilirubin (0.1-1.3) mg/dL AST (5-25) IU/L ALT (12-36) U/L Alkaline Phosphatase (56-112) IU/L Total Protein (6.0-8.0) g/dL Albumin (3.2-4.6) g/dL Globulin g/dL Albumin/Globulin Ratio Urine Color Yellow (YELLOW) Urine Appearance Slightly cloudy (CLEAR) Urine pH 6.0 (5.0-6.5) Ur Specific [place] 1.020 (1.010-1.025) Urine Protein Trace (NEGATIVE) mg/dL Urine Glucose (UA) Normal (NEGATIVE) mg/dL Urine Ketones Negative (NEGATIVE) mg/dL Urine Occult Blood Negative (NEGATIVE) Urine Nitrite Negative (NEGATIVE) Urine Bilirubin Small H (NEGATIVE) Urine Urobilinogen 1 H (NEGATIVE) mg/dL Ur Leukocyte Esterase Negative (NEGATIVE) Urine RBC 0-5 (0) Urine WBC 0-5 (0) Ur Squamous Epith Cells Moderate H (NS,R,O) Amorphous Sediment Few Urine Bacteria Few H (NS) Urine Opiates Screen Negative (NEGATIVE) Ur Oxycodone Screen Negative (NEGATIVE) Ur Propoxyphene Screen Negative (NEGATIVE) Ur Barbituates Screen Negative (NEGATIVE) Ur Tricyclics Screen Negative (NEGATIVE) Ur Phencyclidine Scrn Negative (NEGATIVE) Ur Amphetamine Screen Negative (NEGATIVE) Urine MDMA Screen Negative (NEGATIVE) U Benzodiazepines Scrn Positive H (NEGATIVE) U Cocaine Metab Screen Negative (NEGATIVE) U Marijuana (THC) Screen Negative (NEGATIVE) Ethyl Alcohol (<0.03) % 06/08/18 06/08/18 Range/Units 06:12 06:12 WBC (4.5-12.0) X10-3/uL RBC (3.23-5.20) x10(6)uL Hgb (11.5-15.5) g/dL Hct (30.0-51.3) % MCV (80-96) fL MCH (27.7-33.6) pg MCHC (32.2-35.4) g/dL RDW (11.5-15.5) % Plt Count (125-369) X10(3)uL MPV (7.4-10.4) fL Neut % (Auto) (46-82) % Lymph % (Auto) (13-37) % [place] % (Auto) (4-12) % Eos % (Auto) (1.0-5.0) % Baso % (Auto) (0-2) % Neut # (Auto) (1.6-8.3) # Lymph # (Auto) (0.6-5.0) # [place] # (Auto) (0.0-1.3) # Eos # (Auto) (0.0-0.8) # Baso # (Auto) (0.0-0.2) # PT 9.3 (8.7-11.1) INR 0.96 (0.89-1.13) APTT 21.4 L (24.4-33.2) SECONDS Sodium 141 (135-145) mmol/L Potassium 3.4 L (3.5-5.3) mmol/L Chloride 109 D (100-110) mmol/L Carbon Dioxide 23 (21-32) mmol/L BUN 17 (7-18) mg/dL Creatinine 1.0 (0.55-1.02) mg/dL Est Cr Clr Drug Dosing 42.97 Estimated GFR (MDRD) 57 L (>60) BUN/Creatinine Ratio 17.0 (9-20) Glucose 98 (80-116) mg/dL Calcium 8.7 (8.6-10.2) mg/dL Phosphorus 2.9 (2.6-4.6) mg/dL Magnesium 2.0 (1.8-2.5) mg/dL Total Bilirubin 0.6 (0.1-1.3) mg/dL AST 27 H (5-25) IU/L ALT 43 H (12-36) U/L Alkaline Phosphatase 66 (56-112) IU/L Total Protein 6.6 (6.0-8.0) g/dL Albumin 3.2 (3.2-4.6) g/dL Globulin 3.4 g/dL Albumin/Globulin Ratio 0.9 Urine Color (YELLOW) Urine Appearance (CLEAR) Urine pH (5.0-6.5) Ur Specific [place] (1.010-1.025) Urine Protein (NEGATIVE) mg/dL Urine Glucose (UA) (NEGATIVE) mg/dL Urine Ketones (NEGATIVE) mg/dL Urine Occult Blood (NEGATIVE) Urine Nitrite (NEGATIVE) Urine Bilirubin (NEGATIVE) Urine Urobilinogen (NEGATIVE) mg/dL Ur Leukocyte Esterase (NEGATIVE) Urine RBC (0) Urine WBC (0) Ur Squamous Epith Cells (NS,R,O) Amorphous Sediment Urine Bacteria (NS) Urine Opiates Screen (NEGATIVE) Ur Oxycodone Screen (NEGATIVE) Ur Propoxyphene Screen (NEGATIVE) Ur Barbituates Screen (NEGATIVE) Ur Tricyclics Screen (NEGATIVE) Ur Phencyclidine Scrn (NEGATIVE) Ur Amphetamine Screen (NEGATIVE) Urine MDMA Screen (NEGATIVE) U Benzodiazepines Scrn (NEGATIVE) U Cocaine Metab Screen (NEGATIVE) U Marijuana (THC) Screen (NEGATIVE) Ethyl Alcohol (<0.03) % Med Orders - Current: Current Medications Acetaminophen (Tylenol) 650 mg PO Q4H PRN PRN Reason: Pain (Mild 1-3)/fever Last Admin: 06/08/18 06:03 Dose: 650 mg Folic Acid (Folic Acid) 1 mg PO DAILY [facility] Last Admin: 06/08/18 08:25 Dose: 1 mg Hydroxyzine HCl (Atarax) 25 mg PO Q4H PRN PRN Reason: Anxiety Last Admin: 06/08/18 09:39 Dose: 25 mg Ibuprofen (Motrin) 400 mg PO Q8H PRN PRN Reason: joint pain if Tylenol doesn't Lorazepam (Ativan) 0 mg PO ASDIRECTED [facility]; Protocol Multivitamins/Minerals/Vitamin C (Tab-A-Sudhakar) 1 tab PO DAILY [facility] Last Admin: 06/08/18 08:25 Dose: 1 tab Nicotine Polacrilex (Commit) 2 mg CHEW Q1H PRN PRN Reason: tobacco abuse Sodium Chloride (Saline Flush) 10 ml FLUSH ASDIRECTED PRN PRN Reason: Keep Vein Open Last Admin: 06/08/18 07:21 Dose: 10 ml Thiamine HCl (Vitamin B-1) 100 mg PO DAILY [facility] Last Admin: 06/08/18 08:24 Dose: 100 mg Discontinued Medications Atenolol (Tenormin) 25 mg PO BID [facility] Last Admin: 06/07/18 21:11 Dose: Not Given Folic Acid (Folic Acid) 1 mg PO ONETIME ONE Stop: 06/07/18 15:03 Last Admin: 06/07/18 15:14 Dose: 1 mg Sodium Chloride (Normal Saline) 1,000 mls @ 999 mls/hr IV .BOLUS ONE Stop: 06/07/18 14:15 Last Admin: 06/07/18 13:40 Dose: 999 mls/hr Multivitamins/Minerals/Vitamin C (Tab-A-Sudhakar) 1 tab PO ONETIME STA Stop: 06/07/18 15:03 Last Admin: 06/07/18 15:14 Dose: 1 tab Thiamine HCl (Vitamin B-1) 100 mg PO ONETIME ONE Stop: 06/07/18 15:03 Last Admin: 06/07/18 15:14 Dose: 100 mg - Exam General: Reports: Alert, Oriented, Cooperative, No Acute Distress HEENT: Reports: Pupils Equal, Pupils Reactive, EOMI Neck: Reports: Supple Lungs: Reports: Clear to Auscultation, Normal Respiratory Effort Cardiovascular: Reports: Regular Rate, Regular Rhythm, No Murmurs GI/Abdominal Exam: Normal Bowel Sounds, Soft, Non-Tender, No Distention Extremities: No Pedal Edema
== END 2018-06-08 13:20 | disposition home or self-care (01) ==
LOC: FB.ED 13:00 → UNDOADMOB 16:03 → FB.ICU 16:03
PROVIDERS: ADMIT Family Medicine; ATTEND Family Medicine
DX: F13.239 Sedative, hypnotic or anxiolytic dependence with withdrawal, unspecified (principal); F13.288 Sedative, hypnotic or anxiolytic dependence with other sedative, hypnotic or anxiolytic-induced disorder; R56.9 Unspecified convulsions; J43.9 Emphysema, unspecified; R91.1 Solitary pulmonary nodule; I10 Essential (primary) hypertension; F17.200 Nicotine dependence, unspecified, uncomplicated; F41.9 Anxiety disorder, unspecified; M50.30 Other cervical disc degeneration, unspecified cervical region
CPT/HCPCS: 36415; 70450; 72125; 80048; 80053; 80305; 81001; 83735; 84100; 85025; 85610; 85730; 93005; 99284; A9270; G0480; J7030

== ENCOUNTER 2021-02-11 13:09 | Emergency (ER) | payer BC, MEDICAID, SELFPAY ==
--- NOTE | 2021-02-11 14:05 | EDM.PDOC ---
ED HPI GENERAL MEDICAL PROBLEM - General Stated Complaint: EDONNA BLOOD PRESSURE/BLURRED VISION Time Seen by Provider: 02/11/21 13:35 Source of Information: Reports: Patient History Limitations: Reports: No Limitations - History of Present Illness INITIAL COMMENTS - FREE TEXT/NARRATIVE: 61-year-old lady was sent to the emergency department by the walk-in clinic after being found to have significantly elevated blood pressure with systolic in the 190s and diastolic in the 90s. Ports that her vision has been hazy. She has a mild headache and mild chest pain/pressure. This is been consistent but she did not think much of it. She actually went to the walk-in clinic because she missed a clinic appointment on Saturday. She went in for a skin check and because she was having pain in her ankles bilaterally. Her medical history is significant for Sjogren's syndrome. She takes Tylenol and NSAIDs regularly for pain and anti-inflammatory effects secondary to Sjogren's syndrome. She does have a history of syncope. She was taking both atenolol and a benzodiazepine and was drinking at the [employer] and passed out. She is very nervous in her nature and worries about a great many things. She recently started a new job and has significant stress from that. She is otherwise healthy and denies any upper respiratory symptoms including cough, runny nose, fever, chills. She has had some sense of decreased urinary output but no dysuria or hematuria. She takes MiraLAX regularly to have regular bowel movements. She had a colonoscopy last year which found a few polyps but no concerns. 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 Musculoskeletal History: SJOGRENS SYNDROME Neurological History: Reports: Seizure Psychiatric History: Reports: Anxiety Dermatologic History: Reports: Psoriasis - Infectious Disease History Infectious Disease History: Reports: Chicken Pox, Shingles - Past Surgical History GI Surgical History: Reports: Cholecystectomy, Hernia Repair/Other Social & Family History - Family History Family Medical History: No Pertinent Family History - Caffeine Use Caffeine Use: Reports: None ED ROS GENERAL - Review of Systems Review Of Systems: See Below Constitutional: Reports: Fatigue HEENT: Reports: Vision Change, Other (Dry eyes secondary to Sjogren's) Respiratory: Reports: No Symptoms Cardiovascular: Reports: Chest Pain Endocrine: Reports: Fatigue GI/Abdominal: Reports: No Symptoms : Reports: Urinary Retention Musculoskeletal: Reports: Joint Pain Skin: Reports: Dryness Neurological: Reports: Dizziness Psychiatric: Reports: Anxiety Hematologic/Lymphatic: Reports: No Symptoms Immunologic: Reports: No Symptoms ED EXAM, GENERAL - Physical Exam Exam: See Below Free Text/Narrative:: Patient was able to stand on her own next to the bed without assistance and she was able to stand throughout the physical exam. Exam Limited By: No Limitations General Appearance: Alert, No Apparent Distress Eye Exam: Bilateral Eye: EOMI, PERRL Head: Atraumatic, Normocephalic Neck: Normal Inspection. No: Lymphadenopathy (R), Lymphadenopathy (L) Respiratory/Chest: No Respiratory Distress, Lungs Clear, Normal Breath Sounds Cardiovascular: Normal Peripheral Pulses, Regular Rate, Rhythm, No Edema, No Murmur Peripheral Pulses: 2+: Radial (L), Radial (R), Dorsalis Pedis (L), Dorsalis Pedis (R) GI/Abdominal: Normal Bowel Sounds, Tender Back Exam: CVA Tenderness (R), CVA Tenderness (L) Extremities: Normal Inspection, No Pedal Edema Neurological: Alert, Oriented, CN II-XII Intact, Normal Cognition Psychiatric: Anxious Skin Exam: Warm, Dry Course - Vital Signs Text/Narrative:: Review of labs shows that the patient likely has stage IIIa chronic kidney disease and normocytic anemia. Patient will be given lisinopril 5 mg and sent home with a prescription for lisinopril, 5 mg daily. Last Recorded V/S: Last Vital Signs Temp 36.6 C 02/11/21 13:09 Pulse 61 02/11/21 13:09 Resp 16 02/11/21 13:09 BP 178/70 H 02/11/21 13:09 Pulse Ox 100 02/11/21 13:09 - Orders/Labs/Meds Orders: Active Orders 24 hr Category Date Time Status EKG 12 Lead [EK] Routine Ther 02/11/21 13:29 Ordered Labs: Laboratory Tests 02/11/21 02/11/21 02/11/21 Range/Units 13:50 13:50 13:50 WBC 4.5 (3.0-10.3) x10-3/uL RBC 3.40 L (3.60-5.20) x10(6)uL Hgb 10.8 L (11.4-15.5) g/dL Hct 31.5 L (34.2-48.2) % MCV 92.7 (76.7-100.5) fL MCH 31.6 (23.9-33.9) pg MCHC 34.1 (31.9-34.8) g/dL RDW 14.3 (12.3-16.5) % Plt Count 162 (151-488) x10(3)uL MPV 7.0 L (7.1-12.4) fL Neut % (Auto) 63.8 (30.8-76.2) % Lymph % (Auto) 24.1 (18.4-52.1) % [place] % (Auto) 9.6 (4.4-15.7) % Eos % (Auto) 2.2 (0.6-8.1) % Baso % (Auto) 0.3 (0.2-1.5) % Neut # (Auto) 2.9 (1.5-6.3) x10-3/uL Lymph # (Auto) 1.1 (1.0-4.4) x10-3/uL [place] # (Auto) 0.4 (0.3-1.0) x10-3/uL Eos # (Auto) 0.1 (0.0-0.8) x10-3/uL Baso # (Auto) 0.0 (0.0-0.1) x10-3/uL Sodium 142 (135-145) mmol/L Potassium 3.7 (3.5-5.3) mmol/L Chloride 108 D (100-110) mmol/L Carbon Dioxide 24 (21-32) mmol/L BUN 20 H (7-18) mg/dL Creatinine 1.2 H (0.55-1.02) mg/dL Est Cr Clr Drug Dosing 34.47 mL/min Estimated GFR (MDRD) 45 L (>60) BUN/Creatinine Ratio 16.7 (9-20) Glucose 104 (80-116) mg/dL Calcium 9.3 (8.6-10.2) mg/dL Total Bilirubin 0.5 (0.1-1.3) mg/dL AST 27 H D (5-25) IU/L ALT 30 D (12-36) U/L Alkaline Phosphatase 73 (56-112) IU/L Troponin I 8.4 (4.0-60.3) pg/mL Total Protein 7.5 (6.0-8.0) g/dL Albumin 4.0 (3.2-4.6) g/dL Globulin 3.5 g/dL Albumin/Globulin Ratio 1.1 Urine Color (YELLOW) Urine Appearance (CLEAR) Urine pH (5.0-6.5) Ur Specific [place] (1.010-1.025) Urine Protein (NEGATIVE) mg/dL Urine Glucose (UA) (NORMAL) mg/dL Urine Ketones (NEGATIVE) mg/dL Urine Occult Blood (NEGATIVE) Urine Nitrite (NEGATIVE) Urine Bilirubin (NEGATIVE) Urine Urobilinogen (NEGATIVE) mg/dL Ur Leukocyte Esterase (NEGATIVE) Urine WBC (0-5) Ur Squamous Epith Cells (NS,R,O) Urine Bacteria (NS) 02/11/21 Range/Units 14:25 WBC (3.0-10.3) x10-3/uL RBC (3.60-5.20) x10(6)uL Hgb (11.4-15.5) g/dL Hct (34.2-48.2) % MCV (76.7-100.5) fL MCH (23.9-33.9) pg MCHC (31.9-34.8) g/dL RDW (12.3-16.5) % Plt Count (151-488) x10(3)uL MPV (7.1-12.4) fL Neut % (Auto) (30.8-76.2) % Lymph % (Auto) (18.4-52.1) % [place] % (Auto) (4.4-15.7) % Eos % (Auto) (0.6-8.1) % Baso % (Auto) (0.2-1.5) % Neut # (Auto) (1.5-6.3) x10-3/uL Lymph # (Auto) (1.0-4.4) x10-3/uL [place] # (Auto) (0.3-1.0) x10-3/uL Eos # (Auto) (0.0-0.8) x10-3/uL Baso # (Auto) (0.0-0.1) x10-3/uL Sodium (135-145) mmol/L Potassium (3.5-5.3) mmol/L Chloride (100-110) mmol/L Carbon Dioxide (21-32) mmol/L BUN (7-18) mg/dL Creatinine (0.55-1.02) mg/dL Est Cr Clr Drug Dosing mL/min Estimated GFR (MDRD) (>60) BUN/Creatinine Ratio (9-20) Glucose (80-116) mg/dL Calcium (8.6-10.2) mg/dL Total Bilirubin (0.1-1.3) mg/dL AST (5-25) IU/L ALT (12-36) U/L Alkaline Phosphatase (56-112) IU/L Troponin I (4.0-60.3) pg/mL Total Protein (6.0-8.0) g/dL Albumin (3.2-4.6) g/dL Globulin g/dL Albumin/Globulin Ratio Urine Color Yellow (YELLOW) Urine Appearance Slightly cloudy (CLEAR) Urine pH 6.0 (5.0-6.5) Ur Specific [place] 1.010 (1.010-1.025) Urine Protein Negative (NEGATIVE) mg/dL Urine Glucose (UA) Normal (NORMAL) mg/dL Urine Ketones Negative (NEGATIVE) mg/dL Urine Occult Blood Negative (NEGATIVE) Urine Nitrite Negative (NEGATIVE) Urine Bilirubin Negative (NEGATIVE) Urine Urobilinogen Normal (NEGATIVE) mg/dL Ur Leukocyte Esterase Negative (NEGATIVE) Urine WBC 0-5 (0-5) Ur Squamous Epith Cells Few H (NS,R,O) Urine Bacteria Few H (NS) Departure - Departure Time of Disposition: 14:59 Disposition: Home, Self-Care 01 Condition: Good Clinical Impression: Hypertensive urgency, Normocytic anemia, Chronic kidney disease, Hypertension, Anxiety Instructions: Preventing Hypertension, Chronic Kidney Disease, Adult, [id number], Hypertension, Adult, [id number], Managing Anxiety, Adult Additional Instructions: Patient instructed to take lisinopril, 5 mg, daily and to follow-up with her primary care physician in 2 weeks to determine efficacy of treatment. Sepsis Event Note (ED) - Focused Exam Vital Signs: Vital Signs Temp Pulse Resp BP Pulse Ox 02/11/21 13:09 36.6 C 61 16 178/70 H 100 - My Orders Last 24 Hours: My Active Orders 02/11/21 13:29 EKG 12 Lead [EK] Routine - Assessment/Plan Last 24 Hours: My Active Orders 02/11/21 13:29 EKG 12 Lead [EK] Routine
--- NOTE | 2021-02-11 14:12 | PCM.EKG ---
#1 Interpretation EKG Date: 02/11/21 Time: 13:19 EKG Interpretation Comments: Normal sinus rhythm, rate 63, normal axis, no obvious ST-T segment abnormalities
[2021-02-11] MEDS ORDERED: Lisinopril 5 MG Tab PO ONE (14:59)
== END 2021-02-11 15:25 | disposition home or self-care (01) ==
LOC: FB.ED 13:09
DX: I16.0 Hypertensive urgency (principal); D64.9 Anemia, unspecified; I12.9 Hypertensive chronic kidney disease with stage 1 through stage 4 chronic kidney disease, or unspecified chronic kidney disease; N18.9 Chronic kidney disease, unspecified; F41.9 Anxiety disorder, unspecified; Z88.2 Allergy status to sulfonamides
CPT/HCPCS: 36415; 80053; 81001; 84484; 85025; 93005; 99285; A9270